=== PATIENT | male | born 1995 | race Hispanic/Latino ===

== ENCOUNTER 2018-08-20 22:35 | Emergency (ER) | payer OTHER ==
[~2018-08-20] VITALS: Ht 180.3 cm; Wt 129.3 kg
[2018-08-20] MEDS ORDERED: KETOROLAC TROMETHAMINE 60 MG/2 ML VIAL IM ONE ×2 (23:45)
[2018-08-20] MEDS ORDERED: KETOROLAC TROMETHAMINE 60 MG/2 ML VIAL ONE (23:46)
--- NOTE | 2018-08-21 00:12 | Diagnostic Imaging Report ---
EXAM: CHEST 2 VIEWS, PA and lateral INDICATION: Shortness of breath, back pain COMPARISON: None FINDINGS: LINES/TUBES: None LUNGS: No consolidations or edema. PLEURA: No effusions or pneumothorax. HEART AND MEDIASTINUM: Normal size and contour. BONES AND SOFT TISSUES: No acute findings. IMPRESSION: No acute thoracic abnormality. Signed by: Dr. Karla Villela M.D. on 08/21/2018 12:08 AM
[2018-08-21 00:35] LABS: CLARITY,URINE CLEAR (CLEAR); COLOR,URINE YELLOW (YELLOW); LEUKOCYTE ESTERASE ,URINE NEGATIVE (NEGATIVE); NITRITE,URINE NEGATIVE (NEGATIVE); PROTEIN,URINE DIPSTICK 2+ (NEGATIVE)
[2018-08-21 00:36] LABS: BILIRUBIN,URINE NEGATIVE (NEGATIVE); KETONES,URINE NEGATIVE (NEGATIVE); URINE UROBILINOGEN 0.2 mg/dL (0.2 - 1)
[2018-08-21 00:39] LABS: BACTERIA,URINE RARE /HPF; EPITHELIAL CELLS,URINE FEW /LPF
--- NOTE | 2018-08-21 01:22 | Diagnostic Imaging Report ---
EXAM: CT ABDOMEN AND PELVIS without IV CONTRAST INDICATION: Right flank pain, hematuria COMPARISON: None TECHNIQUE: The abdomen and pelvis were scanned using a multidetector helical scanner. Coronal and sagittal reformations were obtained. Dose modulation, iterative reconstruction, and/or weight based adjustment of the mA/kV was utilized to reduce the radiation dose to as low as reasonably achievable. Renal stone protocol performed. IV Contrast: None Oral Contrast: None CTDIvol has been reviewed. It is below the limits set by the Radiation Protocol Committee (RPC). FINDINGS: LOWER THORAX: No consolidations LIVER: No masses BILIARY: Contracted gallbladder. No ductal dilation. SPLEEN: No masses PANCREAS: No masses ADRENALS: No nodules RIGHT KIDNEY: No nephroureterolithiasis or hydronephrosis. The kidney is small measuring 7.3 cm in length. LEFT KIDNEY: No nephroureterolithiasis or hydronephrosis. The kidney is small measuring 7.8 cm in length. GI TRACT: No wall thickening or obstruction. Nonspecific hyperdense material within the stomach. Normal appendix. VESSELS: Unremarkable PERITONEUM/RETROPERITONEUM: No free air or fluid LYMPH NODES: No lymphadenopathy REPRODUCTIVE ORGANS: Normal BLADDER: Normal SOFT TISSUES: Normal BONES: No suspicious bone lesions. IMPRESSION: 1. No nephroureterolithiasis or hydronephrosis. 2. The kidneys are small for age bilaterally. Signed by: Dr. Karla Villela M.D. on 08/21/2018 1:19 AM
== END 2018-08-21 01:43 | disposition home or self-care (01) ==
LOC: ER 22:35
DX: M54.6 Pain in thoracic spine (principal); M54.5 Low back pain; S23.3XXA Sprain of ligaments of thoracic spine, initial encounter; S39.012A Strain of muscle, fascia and tendon of lower back, initial encounter; I10 Essential (primary) hypertension
CPT/HCPCS: 71046; 74176; 81001; 99283; J1885

== ENCOUNTER → 2018-09-04 | Outpatient (CLI) | payer OTHER ==
--- NOTE | 2018-09-04 09:10 | Diagnostic Imaging Report ---
PROCEDURE:US RETROPERITONEAL ( KIDNEY ). COMPARISON:CT abdomen and pelvis without contrast 08/21 2018. INDICATIONS:CKD TECHNIQUE: Samuel-scale and color sonographic images of the bilateral kidneys and bladder where obtained in transverse and longitudinal planes. FINDINGS: RIGHT KIDNEY: 11.2 cm in length, cortical thickness 1.6 cm Cysts: Interpolar parenchymal simple cyst measuring 1.8 x 1.5 x 1.5 cm. No internal vascularity or solid component. Solid masses: None Stones: None Hydronephrosis: None Echogenicity: Increased renal cortical echogenicity. LEFT KIDNEY: 10.5 cm in length, cortical thickness 1.4 cm. Cysts: None Solid masses: None Stones: None Hydronephrosis: None Echogenicity: Increased renal cortical echogenicity. Bladder: Unremarkable. Ureteral jets are not identified, likely related to timing of scan acquisition. Prostate: 2.2 x 2.5 x 4.2 cm, estimated volume 12 cc CONCLUSION: Increased renal cortical echogenicity compatible with medical renal disease. Simple right renal cyst measuring 1.8 cm. Dictated by: Dominick Conn M.D. on 09/04/2018 at 9:19 Electronically approved by: Dominick Conn M.D. on 09/04/2018 at 9:19
== END ==
LOC: US 07:17
PROVIDERS: ATTEND Family Medicine
DX: N18.4 Chronic kidney disease, stage 4 (severe) (principal)
CPT/HCPCS: 76770; 93306

== ENCOUNTER 2024-09-23 16:05 | Emergency (ER) | payer MEDICARE, OTHER ==
[~2024-09-23] VITALS: Ht 180.3 cm; Wt 129.3 kg
[2024-09-23 16:22] VITALS: PULSE 72; RESP 15; TEMP 98.5; O2SAT 100
== END 2024-09-23 16:40 | disposition home or self-care (01) ==
LOC: ER 16:19
DX: M25.562 Pain in left knee (principal)
CPT/HCPCS: 99282